=== PATIENT | female | born 1965 | race Caucasian/White ===

== ENCOUNTER → 2016-11-02 | Outpatient (CLI) | payer OTHER ==
[~2016-11-02] MED LIST: BACTRIM PO; CYMBALTA 30MG30 MG PO; PHENERGAN W/CO120 M1 PO; ZITHROMAX Z PA250 MG PO; estratest
[2016-11-02 15:54] LABS: HEMATOCRIT 38.8 % (37.0-47.0)
== END ==
LOC: COL.LAB 09-21 13:27
PROVIDERS: Internal Medicine Gastroenterology
DX: E83.118 Other hemochromatosis (principal)

== ENCOUNTER → 2016-12-28 | Outpatient (CLI) | payer OTHER ==
[2016-12-28 15:55] LABS: HEMOGLOBIN 13.8 g/dl (12.5-16.0)
[2016-12-28 15:58] LABS: HEMATOCRIT 40.6 % (37.0-47.0)
== END ==
LOC: COL.LAB 14:45
PROVIDERS: Internal Medicine Gastroenterology
DX: E83.118 Other hemochromatosis (principal)

== ENCOUNTER → 2017-01-25 | Outpatient (CLI) | payer OTHER ==
[2017-01-25 17:36] LABS: TOTAL IRON BINDING CAPACITY 326 ug/dL (265-497)
[2017-01-25 18:03] LABS: FERRITIN 9 ng/mL (11-264)
== END ==
LOC: COL.LAB 09:36
PROVIDERS: Internal Medicine Gastroenterology
DX: Z01.89 Encounter for other specified special examinations (principal)

== ENCOUNTER → 2017-02-15 | Outpatient (CLI) | payer OTHER ==
[2017-02-15 14:43] LABS: HEMOGLOBIN 13.4 g/dl (12.5-16.0)
[2017-02-15 14:46] LABS: HEMATOCRIT 39.3 % (37.0-47.0)
== END ==
LOC: COL.LAB 13:45
PROVIDERS: Internal Medicine Gastroenterology
DX: E83.119 Hemochromatosis, unspecified (principal)

== ENCOUNTER 2017-03-13 10:09 | Day surgery (SDC) | payer OTHER ==
[~2017-03-13] VITALS: Ht 165.1 cm; Wt 87.7 kg
[2017-03-13 10:25] VITALS: BP 132/74; PULSE 61; TEMP 98.2
[2017-03-13 12:25] VITALS: BP 124/95; PULSE 66; TEMP 97.4
[2017-03-13 12:30] VITALS: BP 110/82; PULSE 71
[2017-03-13 12:45] VITALS: BP 105/76; PULSE 66
[2017-03-13 13:17] VITALS: BP 111/63; PULSE 60
== END 2017-03-13 13:15 | disposition home or self-care (01) ==
LOC: SDCO 10:09
DX: K29.30 Chronic superficial gastritis without bleeding (principal); K31.89 Other diseases of stomach and duodenum; K21.9 Gastro-esophageal reflux disease without esophagitis; Z86.010 Personal history of colon polyps
CPT/HCPCS: OP; J2250; J3010; J7030

== ENCOUNTER → 2017-05-04 | Outpatient (CLI) | payer OTHER ==
[2017-05-04 13:35] LABS: HEMATOCRIT 41.2 % (37.0-47.0)
== END ==
LOC: COL.LAB 12:59
PROVIDERS: Internal Medicine Gastroenterology
DX: E83.119 Hemochromatosis, unspecified (principal)

== ENCOUNTER → 2017-07-04 | Outpatient (CLI) | payer OTHER ==
[2017-07-04 15:27] LABS: HEMOGLOBIN 13.7 g/dl (12.5-16.0)
[2017-07-04 15:35] LABS: HEMATOCRIT 40.1 % (37.0-47.0)
== END ==
LOC: COL.LAB 14:39
PROVIDERS: Internal Medicine Gastroenterology
DX: E83.119 Hemochromatosis, unspecified (principal)

== ENCOUNTER → 2017-08-03 | Outpatient (CLI) | payer OTHER ==
[2017-08-03 17:08] LABS: IRON,SERUM 177 ug/dL (35-150)
[2017-08-03 17:17] LABS: TOTAL IRON BINDING CAPACITY 310 ug/dL (265-497)
[2017-08-03 17:47] LABS: FERRITIN 23 ng/mL (11-264)
== END ==
LOC: COL.LAB 08-01 11:43
PROVIDERS: Internal Medicine Gastroenterology
DX: E83.119 Hemochromatosis, unspecified (principal)

== ENCOUNTER → 2017-08-22 | Outpatient (CLI) | payer OTHER ==
[2017-08-22 15:28] LABS: HEMOGLOBIN 14.2 g/dl (12.5-16.0)
[2017-08-22 15:36] LABS: HEMATOCRIT 41.3 % (37.0-47.0)
== END ==
LOC: COL.LAB 14:44
PROVIDERS: Internal Medicine Gastroenterology
DX: E83.110 Hereditary hemochromatosis (principal)

== ENCOUNTER → 2017-11-21 | Outpatient (CLI) | payer OTHER ==
[2017-11-21 15:30] LABS: HEMOGLOBIN 13.9 g/dl (12.5-16.0)
== END ==
LOC: COL.LAB 08:43
PROVIDERS: Internal Medicine Gastroenterology
DX: E83.110 Hereditary hemochromatosis (principal)

== ENCOUNTER → 2018-02-20 | Outpatient (CLI) | payer OTHER ==
[2018-02-20 15:11] LABS: HEMOGLOBIN 13.9 g/dl (12.5-16.0)
[2018-02-20 15:17] LABS: HEMATOCRIT 40.9 % (37.0-47.0)
[2018-02-20 15:36] LABS: IRON,SERUM 207 ug/dL (35-150); TOTAL IRON BINDING CAPACITY 292 ug/dL (265-497)
[2018-02-20 16:02] LABS: FERRITIN 14 ng/mL (11-264)
== END ==
LOC: COL.LAB 14:45
PROVIDERS: Internal Medicine Gastroenterology
DX: E83.110 Hereditary hemochromatosis (principal)

== ENCOUNTER → 2018-03-19 | Outpatient (CLI) | payer OTHER | LOC: MC.RAD 03-01 14:40 | DX: Z12.31 Encounter for screening mammogram for malignant neoplasm of breast (principal) ==

== ENCOUNTER → 2018-07-19 | Outpatient (CLI) | payer OTHER | LOC: COL.RAD 07:43 | DX: R11.0 Nausea (principal) | CPT/HCPCS: A9541 ==

== ENCOUNTER 2018-07-30 10:51 | Day surgery (SDC) | payer OTHER ==
[~2018-07-30] VITALS: Ht 165.1 cm; Wt 91.5 kg
[2018-07-30] MEDS ORDERED: CARAFATE 1GM1 G PO (11:27)
[2018-07-30 11:28] VITALS: BP 137/86; PULSE 70; TEMP 98
[2018-07-30] MEDS ORDERED: LIPITOR 10MG10 MG PO (11:28)
[2018-07-30] MEDS ORDERED: PRILOSEC 20MG20 MG PO (13:29)
[2018-07-30 13:35] VITALS: BP 127/82; PULSE 65; TEMP 97.3
[2018-07-30 13:50] VITALS: BP 110/84; PULSE 67
[2018-07-30 14:05] VITALS: BP 113/76; PULSE 68
[2018-07-30 14:20] VITALS: BP 145/76; PULSE 72
== END 2018-07-30 14:35 | disposition home or self-care (01) ==
LOC: SDCO 10:51
DX: D12.4 Benign neoplasm of descending colon (principal); Z86.010 Personal history of colon polyps; K64.0 First degree hemorrhoids; K29.30 Chronic superficial gastritis without bleeding; K31.89 Other diseases of stomach and duodenum; K21.9 Gastro-esophageal reflux disease without esophagitis; E78.5 Hyperlipidemia, unspecified; Z79.899 Other long term (current) drug therapy
CPT/HCPCS: J2250; J3010; J7030

== ENCOUNTER → 2019-03-24 | Outpatient (CLI) | payer BC ==
[~2019-03-24] MED LIST changes: +CARAFATE 1GM1 G PO; +LIPITOR 10MG10 MG PO; +PRILOSEC 20MG20 MG PO
== END ==
LOC: COL.RAD 14:05
DX: M25.551 Pain in right hip (principal)
CPT/HCPCS: J3301; Q9967

== ENCOUNTER 2021-10-29 18:57 | Emergency (ER) | payer BC ==
[~2021-10-29] VITALS: Ht 160 cm; Wt 85.5 kg
[2021-10-29 19:14] VITALS: TEMP 98.1
[2021-10-29 20:40] VITALS: BP 120/81; PULSE 80
== END 2021-10-29 20:45 | disposition home or self-care (01) ==
LOC: COL.ER 18:57
DX: S61.213A Laceration without foreign body of left middle finger without damage to nail, initial encounter (principal); W27.2XXA Contact with scissors, initial encounter

== ENCOUNTER 2022-02-13 18:30 | Emergency (ER) | payer BC ==
[~2022-02-13] VITALS: Ht 165.1 cm; Wt 81.8 kg
[2022-02-13 18:33] VITALS: TEMP 99
[2022-02-13 19:12] LABS: BASO % 0.7 % (0.0-2.0); GRAN # 3.4 K/mm3 (1.4-6.5); GRAN % 75.8 % (42.2-75.2); HEMATOCRIT 43.1 % (37.0-47.0); LYMPH # 0.6 K/mm3 (1.2-3.4); LYMPH % 13.3 % (20.0-51.0); MEAN CELL VOLUME 94 fl (80.0-100.0); MEAN CORPUSCULAR HEMOGLOBIN 33 pg (27-31); MEAN CORPUSCULAR HGB CONC 35 g/dl (33.0-37.0); MEAN PLATELET VOLUME 8.8 fl (7.4-10.4); MONO # 0.5 K/mm3 (0.1-0.6); PLATELET COUNT 256 K/mm3 (130-400); REDCELL DISTRIBUTION WIDTH-CV 11.8 % (11.5-14.5)
[2022-02-13 19:27] LABS: ALBUMIN 3.8 gm/dL (3.5-5.0); BILIRUBIN,TOTAL 1.5 mg/dL (0.2-1.2); CALCIUM 8.8 mg/dL (8.4-10.2); CREATININE, serum 0.73 mg/dL (0.57-1.11); TOTAL PROTEIN 7.7 gm/dL (6.2-8.1)
[2022-02-13] MEDS ORDERED: PAXLOVID CO-PA1 EACH PO (19:46)
[2022-02-13 20:01] VITALS: BP 135/83; PULSE 81
== END 2022-02-13 20:01 | disposition home or self-care (01) ==
LOC: COL.ER 18:30
PROVIDERS: Physician Assistant
DX: U07.1 COVID-19 (principal)